=== PATIENT | female | born 1960 | race Caucasian/White ===

== ENCOUNTER 2018-04-30 10:49 | Emergency (ER) | payer SELFPAY ==
[~2018-04-30] VITALS: Ht 149.9 cm; Wt 94.8 kg
[~2018-04-30 10:49] MED LIST: ASPI81EC98 PO; [UNRECOGNIZED DRUG - REMARK]; [UNRECOGNIZED DRUG - REMARK]; [UNRECOGNIZED DRUG - REMARK]
[2018-04-30 10:55] VITALS: BP 128/61
--- NOTE | 2018-04-30 11:13 | NUR ---
PATIENT PRESENTS TO ED WITH C/O RIGHT LEG PAIN THAT STARTED AT THE SOLE OF THE FOOT AND RADIATES UPWARD TOWARDS HIP X2 WEEKS. PT ACTIVELY LIMPING. PT DESCRIBES PAIN STABBING AND BURNING, 11/23. HX OF STROKE ON 2012, HTN. AAOX4, LUNGS CLEAR BL; HR EVEN AND REGULAR; PT DENIES ANY FEVER, CP, SOB, OR COUGH AT THIS TIME; DENIES N/V/D; SKIN IS PINK/WARM/DRY; PATIENT POSITIONED FOR COMFORT; HOB ELEVATED; BEDRAILS UP X2; BED DOWN. ER MD MADE AWARE OF PT STATUS.
--- NOTE | 2018-04-30 12:07 | NUR ---
Patient being evaluated by physician at bedside.
[2018-04-30 12:36] VITALS: BP 143/79
--- NOTE | 2018-04-30 12:36 | NUR ---
Patient discharged with v/s stable. Written and verbal after care instructions given and explained. Patient alert, oriented and verbalized understanding of instructions. Ambulatory with steady gait. All questions addressed prior to discharge. ID band removed. Patient advised to follow up with PMD. Rx of IBUPROFEN AND LEVAQUIN given. Patient educated on indication of medication including possible reaction and side effects. Opportunity to ask questions provided and answered.
== END 2018-04-30 12:36 | disposition home or self-care (01) ==
LOC: MED 10:49
DX: L03.115 Cellulitis of right lower limb (principal); I10 Essential (primary) hypertension; Z86.73 Personal history of transient ischemic attack (TIA), and cerebral infarction without residual deficits; Z79.82 Long term (current) use of aspirin; Z79.899 Other long term (current) drug therapy
CPT/HCPCS: 99283

== ENCOUNTER 2018-11-11 14:04 | Emergency (ER) | payer SELFPAY ==
[~2018-11-11] VITALS: Ht 149.9 cm; Wt 96.6 kg
[2018-11-11 14:25] VITALS: BP 149/88
[2018-11-11 17:18] VITALS: BP 138/80
== END 2018-11-11 17:18 | disposition home or self-care (01) ==
LOC: MED 14:04
DX: L03.116 Cellulitis of left lower limb (principal); I10 Essential (primary) hypertension; Z86.73 Personal history of transient ischemic attack (TIA), and cerebral infarction without residual deficits; Z79.82 Long term (current) use of aspirin; Z79.899 Other long term (current) drug therapy
CPT/HCPCS: 73630; 82948; 99283; Q0092